=== PATIENT | female | born 1955 | race Caucasian/White ===

== ENCOUNTER 2018-03-10 12:19 | Inpatient (IN) ==
--- NOTE | 2018-03-10 15:15 | ED ---
HPI General Chief Complaint: Psychiatric Symptoms Stated Complaint: Psych eval Time Seen by Provider: 03/10/18 15:04 Source: patient Mode of arrival: ambulatory Limitations: no limitations History of Present Illness HPI Narrative: 63 YO F with PMH of mechanical valve replacement, A. fib, hypothyroidism, hypertension, anxiety presents to the ED seeking voluntary psychiatric evaluation. Patient states that she has been having racing thoughts for 3 weeks. She states that she has imagined "many ways" to kill herself. She states that she feels unsafe when she is alone. She denies any psychiatric history. She states that she has been unable to sleep and had very little appetite over the last 3 weeks as well. She cannot identify any acute triggers or stressors that may have caused this anxiety. She states that she was seen at [facility] in [place] on Monday and had a complete evaluation. She states that she was found to be hypothyroid and sent to her fur puller the next day. The fur puller sent her to the primary care provider who prescribed a small amount of alprazolam. Patient's been taking the medication but states that she still sleepless, anxious, suicidal and with poor appetite. She denies somatic complaints including headache, dizziness, chest pain, palpitations, shortness of breath, abdominal pain, vomiting, dysuria , weakness of the extremities. She endorses compliance with her daily medications. Related Data Home Medications Medication Instructions Recorded Confirmed Ca-D3-mag [id number]-dinorah-bor 03/10/18 [Calcium 600-D3 Plus] alprazolam 0.25 mg PO BID 03/10/18 03/10/18 alprazolam 0.5 mg PO HS 03/10/18 03/10/18 ascorbic acid (vitamin C) [Vitamin 500 mg PO DAILY 03/10/18 03/10/18 C] buspirone 3.75 mg PO BID 03/10/18 03/10/18 coQ10 (ubiquinol) 100 mg PO BID 03/10/18 03/10/18 cyanocobalamin (vitamin B-12) See Label Instructions .ROUTE 03/10/18 03/10/18 .COMPLEX furosemide 40 mg PO DAILY 03/10/18 03/10/18 levothyroxine [Synthroid] 75 mcg PO DAILY 03/10/18 03/10/18 losartan 50 mg PO DAILY 03/10/18 03/10/18 magnesium 400 mg PO DAILY 03/10/18 03/10/18 metoprolol tartrate 75 mg PO BID 03/10/18 03/10/18 oxycodone-acetaminophen 1 tab PO DAILY 03/10/18 03/10/18 potassium chloride 10 meq PO BID 03/10/18 03/10/18 ranitidine HCl 150 mg PO BID 03/10/18 03/10/18 rosuvastatin 10 mg PO DAILY 03/10/18 03/10/18 temazepam 15 mg PO HS PRN MDD 30 03/10/18 03/10/18 tiotropium bromide [Spiriva 2 puff INHALATION DAILY 03/10/18 03/10/18 Respimat] warfarin 3.5 mg PO DAILY 03/10/18 03/10/18 Allergies Allergy/AdvReac Type Severity Reaction Status Date / Time amitriptyline Allergy Unknown Hypotension Verified 03/10/18 17:20 ciprofloxacin [From Cipro] Allergy Unknown UNKNOWN Verified 03/10/18 17:20 sacubitril [From Entresto] Allergy Unknown Itching Verified 03/10/18 17:20 valsartan [From Entresto] Allergy Unknown Itching Verified 03/10/18 17:20 Review of Systems ROS: all other systems reviewed are negative PMFSH Medical History Medical History Anxiety (Acute) Atrial fibrillation (Acute) CHF (congestive heart failure) (Acute) Depression (Acute) Hyperthyroidism (Acute) Suicidal ideation (Acute) Surgical History Surgical History Hx of heart valve replacement with mechanical valve (Acute) Hx of heart valve replacement with porcine valve (Acute) Social History Social History Substance History: No History of Abuse Smoking Status: Former smoker How Often Do You Have a Drink Containing Alcohol: Never Recent Travel in [place] within the Last 8 Weeks: No Recent Out of Country Travel within the Last 8 Weeks: No Immunization History Tetanus Immunization: <5 Years Exam Narrative Exam Narrative: GENERAL: Well-nourished, well-developed white female no acute distress. SKIN: Focused skin assessment warm/dry. HEAD: Atraumatic. Normocephalic. EYES: Pupils equal and round. No scleral icterus. No injection or drainage. No exopthalmos. ENT: No nasal bleeding or discharge. Mucous membranes pink and moist. NECK: Trachea midline. No JVD. No masses or goiter. CARDIOVASCULAR: Regular rate and rhythm. No murmur appreciated. RESPIRATORY: No accessory muscle use. Clear to auscultation. Breath sounds equal bilaterally. GASTROINTESTINAL: Abdomen soft, non-tender, nondistended. Hepatic and splenic margins not palpable. MUSCULOSKELETAL: No obvious deformities. No clubbing. No cyanosis. No edema. NEUROLOGICAL: Awake and alert. No obvious cranial nerve deficits. Motor grossly within normal limits. Normal speech. Slight tremor which the patient states is baseline. PSYCHIATRIC: Very anxious, occasionally tearful. Course Initial Documented Vital Signs Temperature 97.7 F 03/10/18 12:22 Pulse Rate 89 03/10/18 12:22 Respiratory Rate 18 03/10/18 12:22 Blood Pressure 115/68 03/10/18 12:22 Pulse Oximetry 95 03/10/18 12:22 Last Documented Vital Signs Temperature 98.2 F 03/11/18 06:28 Pulse Rate 87 03/11/18 06:28 Respiratory Rate 16 03/11/18 06:28 Blood Pressure 108/58 L 03/11/18 06:28 Pulse Oximetry 93 L 03/11/18 06:28 Medical Decision Making MDM Narrative Medical decision making narrative: 63-year-old female presents the ED for voluntary psychiatric evaluation. Patient endorses racing thoughts, insomnia, low appetite, suicidal ideation times 3 weeks. She states that she had a complete medical workup at an outside hospital a few days ago and has since seen her fur puller and primary care provider. She has no somatic complaints. Vitals reviewed. On exam the patient's very anxious appearing, mildly tremulous, otherwise unremarkable. Patient was administered a milligram of Ativan IM. Lab work reveals low TSH. Free T3 and T4 within normal limits. Patient is medically clear for psychiatric evaluation. Medical Screen Exam Complete: Yes Emergency Medical Condition: Yes Differential Diagnosis Differential Diagnosis: Adjustment disorder versus anxiety versus bipolar versus depression versus dementia versus PTSD versus other Lab Data Result diagrams: 03/10/18 15:35 03/10/18 15:35 Lab Results 03/10/18 03/10/18 03/10/18 Range/Units 15:35 15:35 15:35 WBC 8.7 (4.0-11.0) th/mm3 RBC 4.27 (4.00-5.30) mil/mm3 Hgb 13.4 (11.6-15.3) gm/dL Hct 38.0 (35.0-46.0) % MCV 89.1 (80.0-100.0) fL MCH 31.4 (27.0-34.0) pg MCHC 35.2 (32.0-36.0) % RDW 13.8 (11.6-17.2) % Plt Count 123 L (150-450) th/mm3 MPV 8.9 (7.0-11.0) fL Neut % (Auto) 71.0 H (16.0-70.0) % Lymph % (Auto) 20.0 (9.0-44.0) % [place] % (Auto) 7.8 (0.0-8.0) % Eos % (Auto) 0.9 (0.0-4.0) % Baso % (Auto) 0.3 (0.0-2.0) % Neut # (Auto) 6.1 (1.8-7.7) th/mm3 Lymph # (Auto) 1.7 (1.0-4.8) th/mm3 [place] # (Auto) 0.7 (0.0-0.9) th/mm3 Eos # (Auto) 0.1 (0.0-0.4) th/mm3 Baso # (Auto) 0.0 (0.0-0.2) th/mm3 WBC Differential . Differential Comment Auto diff final PT 33.8 H (9.8-11.6) sec INR 3.4 Ratio Sodium 143 (136-145) meq/L Potassium 3.5 (3.5-5.1) meq/L Chloride 104 (98-107) meq/L Carbon Dioxide 31.5 (21.0-32.0) meq/L Anion Gap 8 (5-15) meq/L BUN 15 (7-18) mg/dL Creatinine 1.44 H (0.50-1.00) mg/dL Estimated GFR 37 L (>89) mL/min Random Glucose 99 (74-106) mg/dL Calcium 9.4 (8.5-10.1) mg/dL Magnesium 1.8 (1.5-2.5) mg/dL Total Bilirubin 1.3 H (0.2-1.0) mg/dL AST 20 (15-37) U/L ALT 24 (10-53) U/L Alkaline Phosphatase 65 (45-117) U/L Total Protein 7.0 (6.4-8.2) g/dL Albumin 4.0 (3.4-5.0) g/dL TSH 0.335 L (0.358-3.740) uIU/mL Free T4 1.31 (0.76-1.46) ng/dL Free T3 2.34 (2.18-3.98) pg/mL Urine Color (Yellw/Straw) Urine Clarity (Clear) Urine pH (5.0-8.5) Ur Specific [place] (1.002-1.035) Urine Protein (Neg-Trace) mg/dL Urine Glucose (UA) (Negative) mg/dL Urine Ketones (Negative) mg/dL Urine Occult Blood (Negative) Urine Nitrate (Negative) Urine Bilirubin (Negative) Urine Urobilinogen (Less than 2) mg/dL Ur Leukocyte Esterase (Negative) Urine RBC (0-3) /hpf Urine WBC (0-5) /hpf Ur Squamous Epith Cells (0-5) /hpf Hyaline Casts (0-3) /lpf Urine Mucus (Occasional) /lpf Micro UA Comment Ur Microscopic Review Urine Culture Comments Urine Opiates Screen (Neg) Ur Barbiturates Screen (Neg) Ur Amphetamines Screen (Neg) U Benzodiazepines Scrn (Neg) Urine Cocaine Screen (Neg) U Cannabinoids Screen (Neg) Serum Alcohol Less than 3 (0-5) mg/dL 03/10/18 03/10/18 Range/Units 18:53 18:53 WBC (4.0-11.0) th/mm3 RBC (4.00-5.30) mil/mm3 Hgb (11.6-15.3) gm/dL Hct (35.0-46.0) % MCV (80.0-100.0) fL MCH (27.0-34.0) pg MCHC (32.0-36.0) % RDW (11.6-17.2) % Plt Count (150-450) th/mm3 MPV (7.0-11.0) fL Neut % (Auto) (16.0-70.0) % Lymph % (Auto) (9.0-44.0) % [place] % (Auto) (0.0-8.0) % Eos % (Auto) (0.0-4.0) % Baso % (Auto) (0.0-2.0) % Neut # (Auto) (1.8-7.7) th/mm3 Lymph # (Auto) (1.0-4.8) th/mm3 [place] # (Auto) (0.0-0.9) th/mm3 Eos # (Auto) (0.0-0.4) th/mm3 Baso # (Auto) (0.0-0.2) th/mm3 WBC Differential Differential Comment PT (9.8-11.6) sec INR Ratio Sodium (136-145) meq/L Potassium (3.5-5.1) meq/L Chloride (98-107) meq/L Carbon Dioxide (21.0-32.0) meq/L Anion Gap (5-15) meq/L BUN (7-18) mg/dL Creatinine (0.50-1.00) mg/dL Estimated GFR (>89) mL/min Random Glucose (74-106) mg/dL Calcium (8.5-10.1) mg/dL Magnesium (1.5-2.5) mg/dL Total Bilirubin (0.2-1.0) mg/dL AST (15-37) U/L ALT (10-53) U/L Alkaline Phosphatase (45-117) U/L Total Protein (6.4-8.2) g/dL Albumin (3.4-5.0) g/dL TSH (0.358-3.740) uIU/mL Free T4 (0.76-1.46) ng/dL Free T3 (2.18-3.98) pg/mL Urine Color Straw (Yellw/Straw) Urine Clarity Clear (Clear) Urine pH 7.0 (5.0-8.5) Ur Specific [place] 1.005 (1.002-1.035) Urine Protein Negative (Neg-Trace) mg/dL Urine Glucose (UA) Negative (Negative) mg/dL Urine Ketones Negative (Negative) mg/dL Urine Occult Blood Negative (Negative) Urine Nitrate Negative (Negative) Urine Bilirubin Negative (Negative) Urine Urobilinogen Less than 2 (Less than 2) mg/dL Ur Leukocyte Esterase Negative (Negative) Urine RBC Less than 1 (0-3) /hpf Urine WBC 1 (0-5) /hpf Ur Squamous Epith Cells 1 (0-5) /hpf Hyaline Casts 1 (0-3) /lpf Urine Mucus Few H (Occasional) /lpf Micro UA Comment Culture not ind Ur Microscopic Review Not Reportable Urine Culture Comments Culture not ind Urine Opiates Screen Neg (Neg) Ur Barbiturates Screen Neg (Neg) Ur Amphetamines Screen Neg (Neg) U Benzodiazepines Scrn Pos H (Neg) Urine Cocaine Screen Neg (Neg) U Cannabinoids Screen Neg (Neg) Serum Alcohol (0-5) mg/dL Discharge Plan Discharge Disposition Patient Disposition: 30 Still Patient Physicians Team ED Provider: Casandra Ortiz ED Midlevel Provider: Lilian Odom Primary Care Provider: Kody Leo Attending Provider: Raj Villalba Other Providers: Robby Segovia Status ED Status: Left Department Discharge Information Discharge Date/Time: 03/10/18 22:09
[2018-03-10 15:47] LABS: Baso % (Auto) 0.3 % (0.0-2.0); Eos # (Auto) 0.1 th/mm3 (0.0-0.4); Eos % (Auto) 0.9 % (0.0-4.0); Hemoglobin 13.4 gm/dL (11.6-15.3); Lymph # (Auto) 1.7 th/mm3 (1.0-4.8); Mean Corpuscular HGB Conc 35.2 % (32.0-36.0); Mean Corpuscular Hemoglobin 31.4 pg (27.0-34.0); Mean Corpuscular Volume 89.1 fL (80.0-100.0); Mean Platelet Volume 8.9 fL (7.0-11.0); Mono # (Auto) 0.7 th/mm3 (0.0-0.9); Mono % (Auto) 7.8 % (0.0-8.0); Neut # (Auto) 6.1 th/mm3 (1.8-7.7); Platelet Count 123 th/mm3 (150-450); Red Blood Count 4.27 mil/mm3 (4.00-5.30); Red Cell Distribution Width 13.8 % (11.6-17.2); White Blood Count 8.7 th/mm3 (4.0-11.0)
[2018-03-10 16:09] LABS: Alanine Aminotransferase 24 U/L (10-53); Anion Gap 8 meq/L (5-15); Aspartate Aminotransferase 20 U/L (15-37); Blood Urea Nitrogen 15 mg/dL (7-18); Calcium 9.4 mg/dL (8.5-10.1); Carbon Dioxide 31.5 meq/L (21.0-32.0); Chloride 104 meq/L (98-107); Glomerular Filtration Rate 37 mL/min (>89); Glucose,Random 99 mg/dL (74-106); Magnesium 1.8 mg/dL (1.5-2.5); Potassium 3.5 meq/L (3.5-5.1); Sodium 143 meq/L (136-145)
[2018-03-10 16:10] LABS: INR 3.4 Ratio; Prothrombin Time 33.8 sec (9.8-11.6)
[2018-03-10 16:19] LABS: Alkaline Phosphatase 65 U/L (45-117); Thyroid Stimulating Hormone 0.335 uIU/mL (0.358-3.740)
[2018-03-10 18:56] LABS: Free T4 (Free Thyroxine) 1.31 ng/dL (0.76-1.46); Triiodothyronine (T3) Free 2.34 pg/mL (2.18-3.98)
[2018-03-10 19:20] LABS: Bilirubin,Urine Negative (Negative); Clarity,Urine Clear (Clear); Color,Urine Straw (Yellw/Straw); Glucose,Urine (UA) Negative (Negative); Hyaline Casts,Urine 1 /lpf (0-3); Leukocyte Esterase,Urine Negative (Negative); Mucus,Urine Few /lpf (Occasional); Nitrite,Urine Negative (Negative); Specific Gravity,Urine 1.005 (1.002-1.035); Squamous Epithelial Cell,Urine 1 /hpf (0-5)
[2018-03-10 20:08] LABS: Amphetamine Screen,Urine Neg (Neg); Barbiturate Screen,Urine Neg (Neg); Cannabinoid Screen,Urine Neg (Neg); Cocaine Screen,Urine Neg (Neg)
[2018-03-10 20:30] LABS: Opiate Screen,Urine Neg (Neg)
[2018-03-10] MEDS ORDERED: Aluminum/Magnesium/Simethacone Susp 30 ML UDC PO PRN (22:43)
[2018-03-10] MEDS: Metoprolol Tartrate 25 MG Tablet PO SCH (23:23)
[2018-03-11] MEDS: Levothyroxine 75 MCG Tablet PO SCH (05:38)
[2018-03-11] MEDS: Famotidine 20 MG Tablet PO SCH (08:41)
[2018-03-11] MEDS: Ascorbic Acid 500 MG Tablet PO SCH (08:43)
[2018-03-11] MEDS: Magnesium Oxide 400 MG Tablet PO SCH (08:43)
[2018-03-11] MEDS ORDERED: SPIRIVA RESPIMAT INH SCH (09:00)
[2018-03-11] MEDS: Furosemide 40 MG Tablet PO SCH (09:51)
[2018-03-11] MEDS: Metoprolol Tartrate 25 MG Tablet PO SCH ×2 (09:53→20:32)
[2018-03-11 11:06] LABS: Calcium 9.3 mg/dL (8.5-10.1); Carbon Dioxide 32.5 meq/L (21.0-32.0); Potassium 3.5 meq/L (3.5-5.1)
[2018-03-11 11:08] LABS: Chol/HDL Ratio 2.89 Ratio; HDL Cholesterol 42.2 mg/dL (40.0-60.0)
--- NOTE | 2018-03-11 11:29 | P.HPPSY ---
Provisional Diagnosis Admission Date: March 10, 2018 20:33 Competence Certification of Person's Competence To Provide Express and Informed Consent I have personally examined Vickie Petersen, a person being served at [facility] on, March 11, 2018 1123. Express and informed consent means consent voluntarily given in writing, by a competent person, after sufficient explanation and disclosure of the subject matter involved to enable the person to make a knowing and willful decision without any element of force, fraud, deceit, duress, or other form of constraint or coercion. This person is 18 years of age or older, is not now known to be incompetent to consent to treatment with a guardian advocate, and does not have a health care surrogate or proxy currently making medical treatment decisions. I have found this person to be one of the following: [X] Competent to provide express and informed consent, as defined above, for voluntary admission to this facility and is competent to provide express and informed consent for treatment. He/she has the consistent capacity to make well reasoned, willful, and knowing decisions concerning his or her medical or mental health treatment. The person fully and consistently understands the purpose of the admission for examination/placement and is fully capable of personally exercising all rights assured under [place] [] Incompetent to provide express and informed consent to voluntary admission, and this is incompetent to provide express and informed consent to treatment. The person must be transferred to involuntary status and a petition for a guardian advocate filed with the Circuit Court. [] Refusing to provide express and informed consent to voluntary admission but is competent to provide express and informed consent for treatment. The person must be discharged or transferred to involuntary status. Form shall be completed within 24 hours of a person's arrival at the receiving facility and filed in the clinical record of each person: 1. Admitted on a voluntary basis 2. Permitted to provide express and informed consent to his/her own treatment 3. Allowed to transfer from involuntary to voluntary status 4. Prior to permitting a person to consent to his or her own treatment after having been previously found incompetent to consent to treatment. History of Present Illness Capacity: Has capacity Chief Complaint: depression History of Present Illness: Patient is a 63-year-old female with a history of depressive disorder. He is she is here voluntarily for racing thoughts and persistent suicidal ideation. Patient says she has thoughts of not wanting to live anymore, does not care if she wakes up or not, feeling worthless. However, today she denies suicidal or homicidal ideation or plan. Says the thoughts are "in the back of my mind." She admits to anhedonia and depressive mood. Affect is quite anxious and patient is asking for Ativan. Patient notes "some tingling" with Atarax but nursing notes that it has been effective compared to her initial presentation. Patient is complaining of insomnia for the last 3 weeks Past psych: Patient was [place] [facility] here 22 years ago for cutting her wrist. She has had no other outpatient or inpatient treatment. No other psychotropic medications. Past medical: Multiple medical comorbidities including A. fib and hypertension see chart Past Famhx: Unsure Past Social: Patient denies drug or alcohol use. She is and lives with her , and has 2 kids - Inpatient Certification I certify that the inpatient services were ordered in accordance with Medicare regulations governing the order. This includes certification that hospital inpatient services are reasonable and necessary and in the case of services not specified as inpatient-only under 42 CFR 419.22(n), that they are appropriately provided as inpatient services in accordance to with the 2-midnight benchmark under 43 CFR 412.3(e) I certify that inpatient psychiatric hospital services are medically necessary. Evaluation and treatment and/or diagnostic testing are expected to improve the patient's condition. The patient needs on a daily basis, active treatment furnished directly by or requiring the supervision of inpatient psychiatric facility personnel. PMF - History History Provided By: Patient - Medical History Medical History: Medical History (Last Reviewed 03/11/18 @ 11:27 by Tobin Elizondo DO) Anxiety Atrial fibrillation CHF (congestive heart failure) Depression Hyperthyroidism Suicidal ideation - Surgical History Surgical History: Surgical History (Last Reviewed 03/11/18 @ 11:27 by Tobin Elizondo DO) Hx of heart valve replacement with mechanical valve Hx of heart valve replacement with porcine valve - Tobacco History Smoking Status: Former smoker - Alcohol History How Often Do You Have a Drink Containing Alcohol: Never - Substance Use History Substance History: No History of Abuse - Travel History Recent Travel in the [place] Within the Last 8 Weeks: No Recent Travel Out of the Country Within the Last 8 Weeks: No - Immunization History Tetanus Immunization: <5 Years Medications and Allergies Active Medications: Active Medications Acetaminophen (Tylenol) 650 mg PO Q4H PRN PRN Reason: PAIN 1-5 OR TEMP > 101 Al Hydrox/Mg Hydrox/Simethicone (Mag-Al Plus Susp Liq) 30 ml PO Q6H PRN PRN Reason: DYSPEPSIA Al Hydroxide/Mg Hydroxide (Milk Of Magnesia Liq) 30 ml PO DAILY PRN PRN Reason: CONSTIPATION Ascorbic Acid (Vitamin C) 500 mg PO DAILY [facility] Last Admin: 03/11/18 08:43 Dose: 500 mg Atorvastatin Calcium (Lipitor) 20 mg PO DAILY [facility] Last Admin: 03/11/18 08:43 Dose: 20 mg Buspirone HCl (Buspar) 3.75 mg PO BID [facility] Last Admin: 03/11/18 08:48 Dose: Not Given Famotidine (Pepcid) 20 mg PO DAILY [facility] Last Admin: 03/11/18 08:41 Dose: 20 mg Furosemide (Lasix) 40 mg PO DAILY [facility] Last Admin: 03/11/18 09:51 Dose: Not Given Levothyroxine Sodium (Synthroid) 75 mcg PO DAILY@0600 [facility] Last Admin: 03/11/18 05:38 Dose: 75 mcg Losartan Potassium (Cozaar) 50 mg PO DAILY [facility] Last Admin: 03/11/18 09:51 Dose: 50 mg Magnesium Oxide (Mag-Ox) 400 mg PO DAILY [facility] Last Admin: 03/11/18 08:43 Dose: 400 mg Metoprolol Tartrate (Lopressor) 75 mg PO BID [facility] Last Admin: 03/11/18 09:53 Dose: 75 mg Miscellaneous (Pill Splitter) 1 each OTHER UNSCH PRN PRN Reason: PILL SPIT Patient Medication Teaching (Coumadin Booklet) 1 each OTHER ONCE ONE Stop: 03/11/18 16:01 Pt Own Spiriva Respimat 1.25 Mcg/Inh 2 each INH DAILY [facility] Potassium Chloride (Klor-Con 10) 10 meq PO BID [facility] Last Admin: 03/11/18 08:42 Dose: 10 meq Temazepam (Restoril) 30 mg PO HS PRN PRN Reason: SLEEP Warfarin Sodium (Coumadin) 3.5 mg PO DAILY@1600 [facility] Allergies Allergy/AdvReac Type Severity Reaction Status Date / Time amitriptyline Allergy Unknown Hypotension Verified 03/10/18 17:20 ciprofloxacin [From Cipro] Allergy Unknown UNKNOWN Verified 03/10/18 17:20 sacubitril [From Entresto] Allergy Unknown Itching Verified 03/10/18 17:20 valsartan [From Entresto] Allergy Unknown Itching Verified 03/10/18 17:20 Home Medications Medication Instructions Recorded Confirmed Type Ca-D3-mag di-asff-acr-dinorah-bor 03/10/18 History [Calcium 600-D3 Plus] alprazolam 0.25 mg PO BID 03/10/18 03/10/18 History alprazolam 0.5 mg PO HS 03/10/18 03/10/18 History ascorbic acid (vitamin C) [Vitamin 500 mg PO DAILY 03/10/18 03/10/18 History C] buspirone 3.75 mg PO BID 03/10/18 03/10/18 History coQ10 (ubiquinol) 100 mg PO BID 03/10/18 03/10/18 History cyanocobalamin (vitamin B-12) See Label Instructions .ROUTE 03/10/18 03/10/18 History .COMPLEX furosemide 40 mg PO DAILY 03/10/18 03/10/18 History levothyroxine [Synthroid] 75 mcg PO DAILY 03/10/18 03/10/18 History losartan 50 mg PO DAILY 03/10/18 03/10/18 History magnesium 400 mg PO DAILY 03/10/18 03/10/18 History metoprolol tartrate 75 mg PO BID 03/10/18 03/10/18 History oxycodone-acetaminophen 1 tab PO DAILY 03/10/18 03/10/18 History potassium chloride 10 meq PO BID 03/10/18 03/10/18 History ranitidine HCl 150 mg PO BID 03/10/18 03/10/18 History rosuvastatin 10 mg PO DAILY 03/10/18 03/10/18 History temazepam 15 mg PO HS PRN MDD 30 03/10/18 03/10/18 History tiotropium bromide [Spiriva 2 puff INHALATION DAILY 03/10/18 03/10/18 History Respimat] warfarin 3.5 mg PO DAILY 03/10/18 03/10/18 History Results - Labs CBC & Chem 7: 03/10/18 15:35 03/11/18 09:32 Labs: Laboratory Results - last 24 hr 03/10/18 03/10/18 03/10/18 15:35 15:35 15:35 WBC 8.7 RBC 4.27 Hgb 13.4 Hct 38.0 MCV 89.1 MCH 31.4 MCHC 35.2 RDW 13.8 Plt Count 123 L MPV 8.9 Neut % (Auto) 71.0 H Lymph % (Auto) 20.0 [place] % (Auto) 7.8 Eos % (Auto) 0.9 Baso % (Auto) 0.3 Neut # (Auto) 6.1 Lymph # (Auto) 1.7 [place] # (Auto) 0.7 Eos # (Auto) 0.1 Baso # (Auto) 0.0 WBC Differential . Differential Comment Auto diff final PT 33.8 H INR 3.4 Sodium 143 Potassium 3.5 Chloride 104 Carbon Dioxide 31.5 Anion Gap 8 BUN 15 Creatinine 1.44 H Estimated GFR 37 L Random Glucose 99 Calcium 9.4 Magnesium 1.8 Total Bilirubin 1.3 H AST 20 ALT 24 Alkaline Phosphatase 65 Total Protein 7.0 Albumin 4.0 Triglycerides Cholesterol LDL Cholesterol, Calc HDL Cholesterol Cholesterol/HDL Ratio TSH 0.335 L Free T4 1.31 Free T3 2.34 Urine Color Urine Clarity Urine pH Ur Specific [place] Urine Protein Urine Glucose (UA) Urine Ketones Urine Occult Blood Urine Nitrate Urine Bilirubin Urine Urobilinogen Ur Leukocyte Esterase Urine RBC Urine WBC Ur Squamous Epith Cells Hyaline Casts Urine Mucus Micro UA Comment Ur Microscopic Review Urine Culture Comments Urine Opiates Screen Ur Barbiturates Screen Ur Amphetamines Screen U Benzodiazepines Scrn Urine Cocaine Screen U Cannabinoids Screen Serum Alcohol Less than 3 03/10/18 03/10/18 03/11/18 18:53 18:53 09:32 WBC RBC Hgb Hct MCV MCH MCHC RDW Plt Count MPV Neut % (Auto) Lymph % (Auto) [place] % (Auto) Eos % (Auto) Baso % (Auto) Neut # (Auto) Lymph # (Auto) [place] # (Auto) Eos # (Auto) Baso # (Auto) WBC Differential Differential Comment PT INR Sodium 142 Potassium 3.5 Chloride 102 Carbon Dioxide 32.5 H Anion Gap 8 BUN 16 Creatinine 1.53 H Estimated GFR 35 L Random Glucose 99 Calcium 9.3 Magnesium Total Bilirubin AST ALT Alkaline Phosphatase Total Protein Albumin Triglycerides 157 H Cholesterol 122 LDL Cholesterol, Calc 48 HDL Cholesterol 42.2 Cholesterol/HDL Ratio 2.89 TSH Free T4 Free T3 Urine Color Straw Urine Clarity Clear Urine pH 7.0 Ur Specific [place] 1.005 Urine Protein Negative Urine Glucose (UA) Negative Urine Ketones Negative Urine Occult Blood Negative Urine Nitrate Negative Urine Bilirubin Negative Urine Urobilinogen Less than 2 Ur Leukocyte Esterase Negative Urine RBC Less than 1 Urine WBC 1 Ur Squamous Epith Cells 1 Hyaline Casts 1 Urine Mucus Few H Micro UA Comment Culture not ind Ur Microscopic Review Not Reportable Urine Culture Comments Culture not ind Urine Opiates Screen Neg Ur Barbiturates Screen Neg Ur Amphetamines Screen Neg U Benzodiazepines Scrn Pos H Urine Cocaine Screen Neg U Cannabinoids Screen Neg Serum Alcohol Exam Vital signs: Vital Signs 03/10/18 13:31 03/10/18 15:03 03/10/18 21:28 Temperature 97.9 F 98.3 F 98.0 F Pulse Rate 87 88 99 H Respiratory Rate 18 18 16 Blood Pressure 127/65 125/73 119/65 Pulse Oximetry 99 98 98 03/10/18 22:00 03/11/18 06:28 Temperature 98.4 F 98.2 F Pulse Rate 89 87 Respiratory Rate 18 16 Blood Pressure 124/63 108/58 L Pulse Oximetry 93 L 93 L Intake & Output 03/10/18 03/11/18 03/11/18 19:59 06:59 18:59 Intake Total Balance Weight Intake: Oral Mental Status Examination Appearance: Disheveled Consciousness: Alert Orientation: x4 Motor Activity: Normal gait Speech: Hesitant, Slow Language: Adequate Fund of Knowledge: Adequate Attention and Concentration: Adequate Memory: Unremarkable Affect: Sad, Anxious Thought Process & Associations: Other (Anxious) Thought Content: Appropriate Hallucination Type: None Delusion Type: None Suicidal Ideation: No (Passive, fleeting) Suicidal Plan: No Suicidal Intention: No Homicidal Ideation: No Homicidal Plan: No Homicidal Intention: No Insight: Poor Judgment: Poor Assessment and Plan - Assessment (1) Major depressive disorder, recurrent severe without psychotic features Code(s): F33.2 - Major depressive disorder, recurrent severe without psychotic features Status: Acute - Plan Plan: Patient may sign voluntary. We will start Remeron 15 mg p.o. nightly. Patient is seeking Ativan but we will continue with Atarax at this time. We will consult the medical doctor given that she feels that her Lasix is supposed to be every other day Justification for Continued Inpatient Stay: Patient would decompensate in a less restrictive setting
[2018-03-11 13:00] LABS: Hemoglobin A1c 5.5 % (4.3-6.0)
[2018-03-11] MEDS ORDERED: Mirtazapine 15 MG Tablet PO SCH (18:45)
--- NOTE | 2018-03-11 18:50 | P.CONIM ---
History of Present Illness Primary Care Provider: Kody Leo MD History of Present Illness: Pt is 63 yo with depression and anxiety admitted to psych unit for suicidal ideas. She was recently admitted to [facility] for what pt calls hyperthyroidism and her synthroid reduced. 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 Her inr yesterday was 3.4. Denies any cp or palpitation. She is concerned that her home meds have not been resumed. PMH: MV replacement. mechanical x 2 first one at age 21 for endocarditis afib htn remote chf related to her valvulopathy depression/anxiety c sections hypothyroidism copd. sh denies tob/etoh fh; [place] [facility] Medical History Medical History Anxiety (Acute) Atrial fibrillation (Acute) CHF (congestive heart failure) (Acute) Depression (Acute) Hyperthyroidism (Acute) Suicidal ideation (Acute) Surgical History Surgical History Hx of heart valve replacement with mechanical valve (Acute) Hx of heart valve replacement with porcine valve (Acute) Social History Social History Substance History: No History of Abuse Smoking Status: Former smoker How Often Do You Have a Drink Containing Alcohol: Never Recent Travel in [place] within the Last 8 Weeks: No Recent Out of Country Travel within the Last 8 Weeks: No Immunization History Tetanus Immunization: <5 Years Medications and Allergies Allergies Allergy/AdvReac Type Severity Reaction Status Date / Time amitriptyline Allergy Unknown Hypotension Verified 03/10/18 17:20 ciprofloxacin [From Cipro] Allergy Unknown UNKNOWN Verified 03/10/18 17:20 sacubitril [From Entresto] Allergy Unknown Itching Verified 03/10/18 17:20 valsartan [From Entresto] Allergy Unknown Itching Verified 03/10/18 17:20 Home Medications Medication Instructions Recorded Confirmed Type Ca-D3-mag [id number] 03/10/18 History [Calcium 600-D3 Plus] alprazolam 0.25 mg PO BID 03/10/18 03/10/18 History alprazolam 0.5 mg PO HS 03/10/18 03/10/18 History ascorbic acid (vitamin C) [Vitamin 500 mg PO DAILY 03/10/18 03/10/18 History C] buspirone 3.75 mg PO BID 03/10/18 03/10/18 History coQ10 (ubiquinol) 100 mg PO BID 03/10/18 03/10/18 History cyanocobalamin (vitamin B-12) See Label Instructions .ROUTE 03/10/18 03/10/18 History .COMPLEX furosemide 40 mg PO DAILY 03/10/18 03/10/18 History levothyroxine [Synthroid] 75 mcg PO DAILY 03/10/18 03/10/18 History losartan 50 mg PO DAILY 03/10/18 03/10/18 History magnesium 400 mg PO DAILY 03/10/18 03/10/18 History metoprolol tartrate 75 mg PO BID 03/10/18 03/10/18 History oxycodone-acetaminophen 1 tab PO DAILY 03/10/18 03/10/18 History potassium chloride 10 meq PO BID 03/10/18 03/10/18 History ranitidine HCl 150 mg PO BID 03/10/18 03/10/18 History rosuvastatin 10 mg PO DAILY 03/10/18 03/10/18 History temazepam 15 mg PO HS PRN MDD 30 03/10/18 03/10/18 History tiotropium bromide [Spiriva 2 puff INHALATION DAILY 03/10/18 03/10/18 History Respimat] warfarin 3.5 mg PO DAILY 03/10/18 03/10/18 History Active Medications: Active Medications Acetaminophen (Tylenol) 650 mg PO Q4H PRN PRN Reason: PAIN 1-5 OR TEMP > 101 Al Hydrox/Mg Hydrox/Simethicone (Mag-Al Plus Susp Liq) 30 ml PO Q6H PRN PRN Reason: DYSPEPSIA Al Hydroxide/Mg Hydroxide (Milk Of Magnesia Liq) 30 ml PO DAILY PRN PRN Reason: CONSTIPATION Ascorbic Acid (Vitamin C) 500 mg PO DAILY [facility] Last Admin: 03/11/18 08:43 Dose: 500 mg Atorvastatin Calcium (Lipitor) 20 mg PO DAILY [facility] Last Admin: 03/11/18 08:43 Dose: 20 mg Buspirone HCl (Buspar) 3.75 mg PO BID [facility] Last Admin: 03/11/18 08:48 Dose: Not Given Famotidine (Pepcid) 20 mg PO DAILY [facility] Last Admin: 03/11/18 08:41 Dose: 20 mg Furosemide (Lasix) 40 mg PO DAILY [facility] Last Admin: 03/11/18 09:51 Dose: Not Given Hydroxyzine HCl (Atarax) 50 mg PO Q6H PRN PRN Reason: ANXIETY Last Admin: 03/11/18 17:03 Dose: 50 mg Levothyroxine Sodium (Synthroid) 75 mcg PO DAILY@0600 [facility] Last Admin: 03/11/18 05:38 Dose: 75 mcg Losartan Potassium (Cozaar) 50 mg PO DAILY [facility] Last Admin: 03/11/18 09:51 Dose: 50 mg Magnesium Oxide (Mag-Ox) 400 mg PO DAILY [facility] Last Admin: 03/11/18 08:43 Dose: 400 mg Metoprolol Tartrate (Lopressor) 75 mg PO BID [facility] Last Admin: 03/11/18 09:53 Dose: 75 mg Mirtazapine (Remeron) 15 mg PO HS [facility] Miscellaneous (Pill Splitter) 1 each OTHER UNSCH PRN PRN Reason: PILL SPIT Pt Own Spiriva Respimat 1.25 Mcg/Inh 2 each INH DAILY [facility] Potassium Chloride (Klor-Con 10) 10 meq PO BID [facility] Last Admin: 03/11/18 08:42 Dose: 10 meq Temazepam (Restoril) 30 mg PO HS PRN PRN Reason: SLEEP Warfarin Sodium (Coumadin) 3.5 mg PO DAILY@1600 [facility] Physical Exam Vital signs: Last Vital Signs Temp 98.3 F 03/11/18 17:23 Pulse 81 03/11/18 17:23 Resp 17 03/11/18 17:23 BP 102/56 L 03/11/18 17:23 Pulse Ox 96 03/11/18 17:23 Narrative: heart reg lung cta abd s/nt xt no edema Results Labs CBC & Chem 7: 03/10/18 15:35 03/11/18 09:32 Assessment and Plan Assessment (1) Major depressive disorder, recurrent severe without psychotic features: Code(s): F33.2 - Major depressive disorder, recurrent severe without psychotic features Status: Acute (2) Afib: Code(s): I48.91 - Unspecified atrial fibrillation Status: Acute (3) Mitral valve replaced: Code(s): Z95.2 - Presence of prosthetic heart valve Status: Acute (4) Hypothyroidism: Code(s): E03.9 - Hypothyroidism, unspecified Status: Acute Plan depression/anxiety/suicidal Pt admitted to psych unit for depression and suicidal thoughts per psychiatry afib. hx mechanical mitral valve secondary to endocartitis I reviewed the pt's med list with her resume her coumadin 3mg daily with daily inr for now. she reports taking lasix 40mg and kcl 10meq every other day monitor bmp COPD resume her spiriva Hypothyroidism cont her synthroid
[2018-03-11] MEDS: Mirtazapine 15 MG Tablet PO SCH (20:32)
[2018-03-12 07:00] LABS: INR 1.9 Ratio; Prothrombin Time 19.3 sec (9.8-11.6)
[2018-03-12 07:18] LABS: Calcium 8.6 mg/dL (8.5-10.1); Carbon Dioxide 30.4 meq/L (21.0-32.0); Potassium 3.5 meq/L (3.5-5.1)
[2018-03-12] MEDS: Famotidine 20 MG Tablet PO SCH (08:20)
[2018-03-12] MEDS: Ascorbic Acid 500 MG Tablet PO SCH (08:20)
[2018-03-12] MEDS: Magnesium Oxide 400 MG Tablet PO SCH (08:20)
[2018-03-12] MEDS: Levothyroxine 75 MCG Tablet PO SCH (08:22)
[2018-03-12] MEDS: Tiotropium Bromide 18 MCG/ACT Inhaler INH SCH (08:25)
[2018-03-12] MEDS: Metoprolol Tartrate 25 MG Tablet PO SCH ×2 (08:27→21:28)
[2018-03-12] MEDS: Furosemide 40 MG Tablet PO SCH (08:28)
[2018-03-12] MEDS: Acetaminophen 325 MG Tablet PO PRN (13:12)
[2018-03-12] MEDS: Enoxaparin Inj 80 MG/0.8 ML Syringe SQ SCH (14:55)
--- NOTE | 2018-03-12 15:45 | P.TTN ---
- Patient Problems Problems: 1. Discharge planning 2. Medication compliance 3. Knowledge deficit 4. Lack of coping skills - Progress Toward Goals Provider Present: Dr. Renea Marc Provider Input: 03/12: Pt is new, will meet with her and discuss treatment plan today Nurse(s) Present: Ada Nurse Input: 03/12: Pt is depressed; denies SI; denies AVH; cooperative; no behavioral issues Psychiatric Counselors Present: Bertin Yanez Jr., [facility], Shweta Browne, [facility] Group Spec/RT/OT/SOLIZ Present: MARTÍNEZ Echevarria, Fernando Alvarado, OT Group Spec/RT/OT/SOLIZ Input: 03/12: Pt has began to attend select groups with encouragement, she is seclusive Occupational Therapist Input: 03/12: Pt refused to speak to the OT for interview ; MDD, hx of multiple medical problems Clinical Coordinator: Rose Clark, [facility] - Discharge Plan Other 03/12: Pt is new today; will meet with her and discuss discharge planning - Documentation Teaching Recipient: Patient
[2018-03-12] MEDS ORDERED: Aluminum/Magnesium/Simethacone Susp 30 ML UDC PO PRN (17:08)
--- NOTE | 2018-03-12 17:16 | P.PNPSY ---
Subjective Chief Complaint: depression Remarks: Patient initially seen and admitted by Dr. Tobin Elizondo's H&P reviewed and agreed with. I have finished the admitting psychiatric template orders. Patient is seen with nurse Brigitte. She is alert oriented calm and cooperative depressed he has been getting worse over the past month stating she has had very poor sleep with initial and mid insomnia. He only slept somewhat better last night with the addition of the scheduled medications. She is vague about continued suicidality. Review of Systems All other systems reviewed negative except as stated in HPI Mental Status Examination Appearance: Appropriate Consciousness: Alert Orientation: x4 Motor Activity: Normal gait Speech: Hesitant (Improved), Slow (Improved) Language: Adequate Fund of Knowledge: Adequate Attention and Concentration: Adequate Memory: Unremarkable Mood: Sad, Anxious Affect: Other (Slight increased range and intensity) Thought Process & Associations: Intact Thought Content: Appropriate Hallucination Type: None Delusion Type: None Suicidal Ideation: No (Passive, fleeting) Suicidal Plan: No Suicidal Intention: No Homicidal Ideation: No Homicidal Plan: No Homicidal Intention: No Insight: Poor Judgment: Poor Assessment and Plan - Assessment (1) Major depressive disorder, recurrent severe without psychotic features Code(s): F33.2 - Major depressive disorder, recurrent severe without psychotic features Status: Acute - Plan Plan: Patient remains depressed and anxious and insomniac compliant medications Justification for Continued Inpatient Stay: At this time patient would decompensate a place to a lower level of care Discharge Planning: Probable return home
[2018-03-12] MEDS: Mirtazapine 15 MG Tablet PO SCH (21:28)
[2018-03-12] MEDS: Temazepam 15 MG Capsule PO PRN (22:23)
[2018-03-13] MEDS: Enoxaparin Inj 80 MG/0.8 ML Syringe SQ SCH ×2 (05:23→15:03)
[2018-03-13] MEDS: Levothyroxine 75 MCG Tablet PO SCH (06:22)
[2018-03-13] MEDS: Ascorbic Acid 500 MG Tablet PO SCH (09:24)
[2018-03-13] MEDS: Famotidine 20 MG Tablet PO SCH (09:24)
[2018-03-13] MEDS: Magnesium Oxide 400 MG Tablet PO SCH (09:24)
[2018-03-13] MEDS: Metoprolol Tartrate 25 MG Tablet PO SCH ×2 (09:24→21:24)
[2018-03-13] MEDS: Furosemide 40 MG Tablet PO SCH (09:25)
[2018-03-13] MEDS: Tiotropium Bromide 18 MCG/ACT Inhaler INH SCH (10:24)
[2018-03-13 10:25] LABS: Prothrombin Time 20.7 sec (9.8-11.6)
[2018-03-13 10:42] LABS: Calcium 9.2 mg/dL (8.5-10.1); Carbon Dioxide 29.9 meq/L (21.0-32.0); Potassium 3.7 meq/L (3.5-5.1)
--- NOTE | 2018-03-13 14:13 | P.PNPSY ---
Subjective Chief Complaint: depression Remarks: Patient seen in her room with nurse Jaimie, chart reviewed, patient compliant medication. Patient continues quite anxious focusing on her anxiety focusing on her poor sleep function and agreed for medication with some subtle references towards benzodiazepines she states she felt the BuSpar she was given outpatient was not helping her. We did discuss alternatives. We will offer the patient Seroquel 25 mg 9 AM and 4 PM and 50 mg at at bedtime. Patient continues to denies suicidality Review of Systems All other systems reviewed negative except as stated in HPI Mental Status Examination Appearance: Appropriate Consciousness: Alert Orientation: x4 Motor Activity: Normal gait Speech: Hesitant (Improved), Slow (Improved) Language: Adequate Fund of Knowledge: Adequate Attention and Concentration: Adequate Memory: Unremarkable Mood: Sad, Anxious Affect: Other (Slight increased range and intensity) Thought Process & Associations: Intact Thought Content: Appropriate Hallucination Type: None Delusion Type: None Suicidal Ideation: No (Passive, fleeting) Suicidal Plan: No Suicidal Intention: No Homicidal Ideation: No Homicidal Plan: No Homicidal Intention: No Insight: Poor Judgment: Poor Assessment and Plan - Assessment (1) Major depressive disorder, recurrent severe without psychotic features Code(s): F33.2 - Major depressive disorder, recurrent severe without psychotic features Status: Acute - Plan Plan: Patient continues somewhat depressed though her primary focuses on her anxiety and her insomnia and her desire for his rapid a fix on her anxiety and insomnia is possible. C medication adjustments above Justification for Continued Inpatient Stay: At this time patient would decompensate a place to a lower level of care Discharge Planning: Return home with family
[2018-03-13] MEDS: QUEtiapine 25 MG Tablet PO SCH ×2 (15:04→21:24)
[2018-03-13] MEDS: Mirtazapine 15 MG Tablet PO SCH (21:24)
--- NOTE | 2018-03-14 01:05 | XR ---
EXAM DATE: 03/14/2018 12:57 AM EST AGE/SEX: 63 years / Female INDICATIONS: Left foot pain. CLINICAL DATA: This is the patient's initial encounter. Patient reports that signs and symptoms have been present for 1 day and indicates a pain score of Nonresponsive. MEDICAL/SURGICAL HISTORY: None. None. COMPARISON: No prior exams available for comparison. FINDINGS: Bony structures are intact and in normal alignment. Osseous density is normal. Soft tissues are unre markable. No radiopaque foreign bodies seen. CONCLUSION: Negative examination Electronically signed by: Reyes Ruffin MD 03/14/2018 1:03 AM EST
[2018-03-14] MEDS: Enoxaparin Inj 80 MG/0.8 ML Syringe SQ SCH ×2 (02:24→21:02)
[2018-03-14] MEDS: Levothyroxine 75 MCG Tablet PO SCH (05:06)
[2018-03-14 08:28] LABS: Prothrombin Time 20.3 sec (9.8-11.6)
[2018-03-14] MEDS: Metoprolol Tartrate 25 MG Tablet PO SCH ×2 (08:30→21:01)
[2018-03-14] MEDS: Magnesium Oxide 400 MG Tablet PO SCH (08:30)
[2018-03-14] MEDS: Acetaminophen 325 MG Tablet PO PRN (08:31)
[2018-03-14] MEDS: Ascorbic Acid 500 MG Tablet PO SCH (08:31)
[2018-03-14] MEDS: Famotidine 20 MG Tablet PO SCH (08:31)
[2018-03-14] MEDS: Tiotropium Bromide 18 MCG/ACT Inhaler INH SCH (08:33)
[2018-03-14] MEDS: QUEtiapine 25 MG Tablet PO SCH ×3 (08:35→21:01)
--- NOTE | 2018-03-14 12:25 | P.PNPSY ---
Subjective Chief Complaint: depression Remarks: Patient seen in her room with nurse Jaimie, chart reviewed, patient compliant medication. Patient continues to focus on her sleep issues. And wanting her "sleep meds" we discussed the need for appropriate timing for these medications to allow further effect to show itself. We will continue dosages no change at this time. The patient was complaining about the timing for her Lovenox. We will change that to 9 AM and 9 PM. Patient does feel that if her sleep improves much of the rest of her problems will resolve. Continue to work with the sleep issues in an organized structured manner it appears patient had some type of a syncopal type episode last night she complains of twisted ankle there is some swelling over her left foot though she has good range of motion and is somewhat tender though x-rays taken were negative. She has no other sequelae. Her vital signs appears stable at this time Review of Systems All other systems reviewed negative except as stated in HPI Mental Status Examination Appearance: Appropriate Consciousness: Alert Orientation: x4 Motor Activity: Normal gait Speech: Unremarkable, Hesitant Language: Adequate Fund of Knowledge: Adequate Attention and Concentration: Adequate Memory: Unremarkable Mood: Sad, Anxious (Slightly improved) Affect: Other (Slight increased range and intensity) Thought Process & Associations: Intact Thought Content: Appropriate Hallucination Type: None Delusion Type: None Suicidal Ideation: No (Passive, fleeting) Suicidal Plan: No Suicidal Intention: No Homicidal Ideation: No Homicidal Plan: No Homicidal Intention: No Insight: Poor Judgment: Poor Assessment and Plan - Assessment (1) Major depressive disorder, recurrent severe without psychotic features Code(s): F33.2 - Major depressive disorder, recurrent severe without psychotic features Status: Acute - Plan Plan: Patient remains depressed and anxious focusing on her insomnia. She medication adjustments above. Continue to observe Justification for Continued Inpatient Stay: At this time patient may decompensate a place to the lower level of care Discharge Planning: To be determined
[2018-03-14] MEDS: Temazepam 15 MG Capsule PO PRN (21:01)
[2018-03-14] MEDS: Mirtazapine 15 MG Tablet PO SCH (21:02)
[2018-03-15] MEDS: Levothyroxine 75 MCG Tablet PO SCH (06:14)
[2018-03-15 07:15] LABS: INR 2.4 Ratio; Prothrombin Time 24.2 sec (9.8-11.6)
[2018-03-15] MEDS: Metoprolol Tartrate 25 MG Tablet PO SCH ×2 (08:41→20:45)
[2018-03-15] MEDS: Famotidine 20 MG Tablet PO SCH (08:41)
[2018-03-15] MEDS: Furosemide 40 MG Tablet PO SCH (08:41)
[2018-03-15] MEDS: Ascorbic Acid 500 MG Tablet PO SCH (08:42)
[2018-03-15] MEDS: Magnesium Oxide 400 MG Tablet PO SCH (08:42)
[2018-03-15] MEDS: Enoxaparin Inj 80 MG/0.8 ML Syringe SQ SCH ×2 (08:44→20:50)
[2018-03-15] MEDS: Tiotropium Bromide 18 MCG/ACT Inhaler INH SCH (08:45)
[2018-03-15] MEDS: QUEtiapine 25 MG Tablet PO SCH ×2 (08:45→15:27)
--- NOTE | 2018-03-15 12:18 | P.PNPSY ---
Subjective Chief Complaint: depression Remarks: Patient seen in her room with nurse Jaimie, chart reviewed, patient states she slept better last night from about 10 PM to 4 AM. She still focuses on her anxiety. She did take with the temazepam and the Seroquel last night. However I question the efficacy of the temazepam for long-term treatment with this lady. At this time I will discontinue the temazepam and increase the at bedtime Seroquel to 75 mg. Continue the other meds no change Review of Systems All other systems reviewed negative except as stated in HPI Mental Status Examination Appearance: Appropriate Consciousness: Alert Orientation: x4 Motor Activity: Normal gait Speech: Unremarkable, Hesitant (Improved) Language: Adequate Fund of Knowledge: Adequate Attention and Concentration: Adequate Memory: Unremarkable Mood: Sad, Anxious (Slightly improved) Affect: Other (Slight increased range and intensity) Thought Process & Associations: Intact Thought Content: Appropriate Hallucination Type: None Delusion Type: None Suicidal Ideation: No (Passive, fleeting) Suicidal Plan: No Suicidal Intention: No Homicidal Ideation: No Homicidal Plan: No Homicidal Intention: No Insight: Fair Judgment: Poor Assessment and Plan - Assessment (1) Major depressive disorder, recurrent severe without psychotic features Code(s): F33.2 - Major depressive disorder, recurrent severe without psychotic features Status: Acute - Plan Plan: Patient continues somewhat anxious the sleep is improved. Please see medication adjustments above Justification for Continued Inpatient Stay: At this time patient may decompensate a place to a lower level of care Discharge Planning: To be determined probable return home with
[2018-03-15] MEDS: Mirtazapine 15 MG Tablet PO SCH (20:45)
[2018-03-15] MEDS ORDERED: QUEtiapine 25 MG Tablet PO SCH (21:00)
[2018-03-16] MEDS: SYNTHROID 75 MCG PO SCH (06:31)
[2018-03-16] MEDS: Ascorbic Acid 500 MG Tablet PO SCH (08:58)
[2018-03-16] MEDS: Famotidine 20 MG Tablet PO SCH (08:58)
[2018-03-16] MEDS: Metoprolol Tartrate 25 MG Tablet PO SCH ×2 (08:58→21:35)
[2018-03-16] MEDS: Magnesium Oxide 400 MG Tablet PO SCH (08:59)
[2018-03-16] MEDS: QUEtiapine 25 MG Tablet PO SCH ×2 (09:02→16:01)
[2018-03-16] MEDS: Tiotropium Bromide 18 MCG/ACT Inhaler INH SCH (09:02)
[2018-03-16 09:03] LABS: INR 2.6 Ratio; Prothrombin Time 25.8 sec (9.8-11.6)
--- NOTE | 2018-03-16 12:39 | P.PNPSY ---
Subjective Chief Complaint: depression Remarks: Patient seen and amaya with KRISH Herron, chart reviewed, patient compliant medication. Patient states she felt she did not sleep well last night though there was a marked decrease in the anxiety related to this. She states she is surprised that she is up walking around the dayroom and participating which is an improvement since earlier in the admission. Still focuses on the insomnia. She does denies suicidality or voices. States she has talked to the and there appears to be some increased stress between the 2 of them at this time we will increase at bedtime Seroquel to 100 mg. And increase at bedtime Remeron to 30 mg Review of Systems All other systems reviewed negative except as stated in HPI Mental Status Examination Appearance: Appropriate Consciousness: Alert Orientation: x4 Motor Activity: Normal gait Speech: Unremarkable Language: Adequate Fund of Knowledge: Adequate Attention and Concentration: Adequate Memory: Unremarkable Mood: Sad, Anxious (Slightly improved) Affect: Other (Slight increased range and intensity) Thought Process & Associations: Intact Thought Content: Appropriate Hallucination Type: None Delusion Type: None Suicidal Ideation: No (Passive, fleeting) Suicidal Plan: No Suicidal Intention: No Homicidal Ideation: No Homicidal Plan: No Homicidal Intention: No Insight: Fair Judgment: Adequate (Fair) Assessment and Plan - Assessment (1) Major depressive disorder, recurrent severe without psychotic features Code(s): F33.2 - Major depressive disorder, recurrent severe without psychotic features Status: Acute - Plan Plan: Patient remains depressed with much focus on her sleep issues and the anxiety. However objectively she appears somewhat improved stating that there was some decrease in her anxiety through the night, and there is some surprise today at her being up and about on the day room. She medication adjustments above Justification for Continued Inpatient Stay: At this time patient would decompensate a place to a lower level of care Discharge Planning: Return home with
[2018-03-16] MEDS: QUEtiapine 100 MG Tablet PO SCH (21:35)
[2018-03-16] MEDS: Mirtazapine 15 MG Tablet PO SCH (21:35)
[2018-03-16] MEDS: Acetaminophen 325 MG Tablet PO PRN (21:39)
[2018-03-17] MEDS: SYNTHROID 75 MCG PO SCH (05:21)
[2018-03-17] MEDS: Furosemide 40 MG Tablet PO SCH (08:23)
[2018-03-17] MEDS: Magnesium Oxide 400 MG Tablet PO SCH (08:23)
[2018-03-17] MEDS: Ascorbic Acid 500 MG Tablet PO SCH (08:23)
[2018-03-17] MEDS: Famotidine 20 MG Tablet PO SCH (08:23)
[2018-03-17] MEDS: Metoprolol Tartrate 25 MG Tablet PO SCH ×2 (08:24→20:37)
[2018-03-17] MEDS: QUEtiapine 25 MG Tablet PO SCH ×2 (10:09→16:05)
[2018-03-17] MEDS: Tiotropium Bromide 18 MCG/ACT Inhaler INH SCH (10:12)
[2018-03-17] MEDS: Benzocaine/Menthol 15 MG/3.6 MG SF Lozenge BUCCAL PRN (10:35)
--- NOTE | 2018-03-17 11:40 | P.PNPSY ---
Subjective Chief Complaint: depression Remarks: Patient was seen and case discussed with nursing. Patient continues to complain of anxiety though it is improved. She notices sleep has improved. Main stressors are conflict with her . Eating and sleeping well. Mental Status Examination Appearance: Appropriate Consciousness: Alert Orientation: x4 Motor Activity: Normal gait Speech: Unremarkable Language: Adequate Fund of Knowledge: Adequate Attention and Concentration: Adequate Memory: Unremarkable Mood: Sad, Anxious (Slightly improved) Affect: Anxious Thought Process & Associations: Intact Thought Content: Appropriate Hallucination Type: None Delusion Type: None Suicidal Ideation: No (Passive, fleeting) Suicidal Plan: No Suicidal Intention: No Homicidal Ideation: No Homicidal Plan: No Homicidal Intention: No Insight: Fair Judgment: Adequate (Fair) Assessment and Plan - Assessment (1) Major depressive disorder, recurrent severe without psychotic features Code(s): F33.2 - Major depressive disorder, recurrent severe without psychotic features Status: Acute - Plan Plan: Continue current treatment plan Justification for Continued Inpatient Stay: Patient would decompensate in a less restrictive setting
[2018-03-17] MEDS: QUEtiapine 100 MG Tablet PO SCH (20:34)
[2018-03-17] MEDS: Mirtazapine 15 MG Tablet PO SCH (20:34)
[2018-03-18] MEDS: SYNTHROID 75 MCG PO SCH (05:50)
[2018-03-18] MEDS: Metoprolol Tartrate 25 MG Tablet PO SCH ×2 (08:24→21:09)
[2018-03-18] MEDS: Ascorbic Acid 500 MG Tablet PO SCH (08:24)
[2018-03-18] MEDS: QUEtiapine 25 MG Tablet PO SCH ×2 (08:24→16:01)
[2018-03-18] MEDS: Magnesium Oxide 400 MG Tablet PO SCH (08:24)
[2018-03-18] MEDS: Famotidine 20 MG Tablet PO SCH (08:24)
[2018-03-18] MEDS: Tiotropium Bromide 18 MCG/ACT Inhaler INH SCH (08:40)
[2018-03-18] MEDS: Benzocaine/Menthol 15 MG/3.6 MG SF Lozenge BUCCAL PRN (10:28)
--- NOTE | 2018-03-18 12:17 | P.PNPSY ---
Subjective Chief Complaint: depression Remarks: Medical record reviewed and discussed with nursing staff. Patient is in the day room eating lunch. Rounded with KRISH Caballero. Patient's blood pressure was 92/60 last night so Lopressor was held ant then this morning her blood pressure was elevated. She is currently on 75mg of Lopressor. Patient is fearful of falling as she fell last week. She is also asking for her B12 injection. Will place a hospitalist consult for blood pressure management. Eating and sleeping well. Patient is sad and mood is flat. Review of Systems All other systems reviewed negative except as stated in HPI Mental Status Examination Appearance: Appropriate Consciousness: Alert Orientation: x4 Motor Activity: Normal gait Speech: Unremarkable Language: Adequate Fund of Knowledge: Adequate Attention and Concentration: Adequate Memory: Unremarkable Mood: Sad, Anxious (Slightly improved) Affect: Flat, Anxious Thought Process & Associations: Intact Thought Content: Appropriate Hallucination Type: None Delusion Type: None Suicidal Ideation: No (Passive, fleeting) Suicidal Plan: No Suicidal Intention: No Homicidal Ideation: No Homicidal Plan: No Homicidal Intention: No Insight: Fair Judgment: Adequate (Fair) Assessment and Plan - Assessment (1) Major depressive disorder, recurrent severe without psychotic features Code(s): F33.2 - Major depressive disorder, recurrent severe without psychotic features Status: Acute - Plan Plan: Continue current treatment plan Justification for Continued Inpatient Stay: Moving patient to a less restrictive environment may result in her decompensation.
[2018-03-18 17:35] VITALS: RESP 16
[2018-03-18] MEDS: Mirtazapine 15 MG Tablet PO SCH (21:08)
[2018-03-18] MEDS: QUEtiapine 100 MG Tablet PO SCH (21:09)
[2018-03-19 05:12] VITALS: BP 142/59; PULSE 82; TEMP 97.9; O2SAT 96
[2018-03-19] MEDS: SYNTHROID 75 MCG PO SCH (05:34)
[2018-03-19] MEDS: Metoprolol Tartrate 25 MG Tablet PO SCH (09:33)
[2018-03-19] MEDS: Famotidine 20 MG Tablet PO SCH (09:33)
[2018-03-19] MEDS: Ascorbic Acid 500 MG Tablet PO SCH (09:34)
[2018-03-19] MEDS: Furosemide 40 MG Tablet PO SCH (09:34)
[2018-03-19] MEDS: Tiotropium Bromide 18 MCG/ACT Inhaler INH SCH (09:34)
[2018-03-19] MEDS: Magnesium Oxide 400 MG Tablet PO SCH (09:34)
[2018-03-19] MEDS: QUEtiapine 25 MG Tablet PO SCH (09:34)
--- NOTE | 2018-03-19 09:43 | P.TTN ---
- Patient Problems Problems: 1. Discharge planning 2. Medication compliance 3. Knowledge deficit 4. Lack of coping skills - Progress Toward Goals Provider Present: Dr. Renea Marc (Patient is still depressed, patient will remain for further stabilization.) Provider Input: 03/12: Pt is new, will meet with her and discuss treatment plan today Nurse(s) Present: Ada Nurse Input: 03/12: Pt is depressed; denies SI; denies AVH; cooperative; no behavioral issues Psychiatric Counselors Present: Bertin Yanez Jr., [facility] (Counselor will meet with the patient to discuss a safe discharge plan.), Shweta Browne, [facility] Group Spec/RT/OT/SOLIZ Present: MARTÍNEZ Echevarria, Fernando Alvarado, OT, MARTÍNEZ Kraus (Patient attends select groups.) Group Spec/RT/OT/SOLIZ Input: 03/12: Pt has began to attend select groups with encouragement, she is seclusive Occupational Therapist Input: 03/12: Pt refused to speak to the OT for interview ; MDD, hx of multiple medical problems Clinical Coordinator: Rose Clark [facility] - Discharge Plan Other 03/12: Pt is new today; will meet with her and discuss discharge planning - Documentation Teaching Recipient: Patient
[2018-03-19 09:47] LABS: INR 2.2 Ratio; Prothrombin Time 22.2 sec (9.8-11.6)
[2018-03-19] MEDS ORDERED: Enoxaparin Inj 80 MG/0.8 ML Syringe SQ SCH (11:00)
--- NOTE | 2018-03-19 12:01 | P.PNIM ---
Subjective Interval history: DRAFT NOTE Pt has NO new medical complaints. Pt is tolerating PO intake without n/v/d. Pt denies CP, SOB, or palpitations. Pt denies dizziness. Physical Exam Vital signs: Last Vital Signs Temp 97.9 F 03/19/18 05:11 Pulse 82 03/19/18 05:11 Resp 16 03/19/18 05:11 BP 142/59 H 03/19/18 05:11 Pulse Ox 96 03/19/18 05:11 Narrative: GENERAL: This is a well-nourished, well-developed patient, in no apparent distress. CARDIOVASCULAR: Regular rate and rhythm without murmurs, gallops, or rubs. RESPIRATORY: Clear to auscultation. Breath sounds equal bilaterally. No wheezes , rales, or rhonchi. GASTROINTESTINAL: Abdomen soft, non-tender, nondistended. Normal active bowel sounds MUSCULOSKELETAL: Extremities without clubbing, cyanosis, or edema. NEURO: Alert & Oriented x4 to person, place, time, situation. Moves all ext x4 Results Labs CBC & Chem 7: 03/10/18 15:35 03/13/18 09:20 Assessment and Plan Assessment (1) Major depressive disorder, recurrent severe without psychotic features: Code(s): F33.2 - Major depressive disorder, recurrent severe without psychotic features Status: Acute Plan depression/anxiety/suicidal - Pt admitted to psych unit for depression and suicidal thoughts - continue mgmt per psychiatry afib. hx mechanical mitral valve secondary to endocartitis - INR 2.2 (03/19/18) - Per pt, she has a ON-X mechanical valve & INR needs to be between 2-3 - continue current coumadin regimen - discharge to home per psychiatry orders - continue lasix 40mg and kcl 10meq every other day - monitor bmp COPD resume her spiriva Hypothyroidism cont her synthroid Progress Note: Quality VTE Deep Vein Thrombosis/Pulmonary Embolism Present on Admission: No
--- NOTE | 2018-03-19 12:15 | P.DSPSY ---
Psychiatry Discharge Summary Inpatient Psychiatric care?: Yes Advance Directives: No Mental Health Advance Directive: No Health Care Proxy: No - Admission Admission Date: March 10, 2018 20:33 - Admission Diagnosis (1) Major depressive disorder, recurrent severe without psychotic features Code(s): F33.2 - Major depressive disorder, recurrent severe without psychotic features Brief History: Patient is a 63-year-old female with a history of depressive disorder. He is she is here voluntarily for racing thoughts and persistent suicidal ideation. Patient says she has thoughts of not wanting to live anymore, does not care if she wakes up or not, feeling worthless. However, today she denies suicidal or homicidal ideation or plan. Says the thoughts are "in the back of my mind." She admits to anhedonia and depressive mood. Affect is quite anxious and patient is asking for Ativan. Patient notes "some tingling" with Atarax but nursing notes that it has been effective compared to her initial presentation. Patient is complaining of insomnia for the last 3 weeks Past psych: Patient was [facility] here 22 years ago for cutting her wrist. She has had no other outpatient or inpatient treatment. No other psychotropic medications. Past medical: Multiple medical comorbidities including A. fib and hypertension see chart Past Famhx: Unsure Past Social: Patient denies drug or alcohol use. She is and lives with her , and has 2 kids Tobacco Use In Past 30 Days: No How Often Do You Have a Drink Containing Alcohol: Never Hospital Course: Patient's hospital stay was uneventful she focused primarily on her sleep problems and her anxiety. Her sleep issues have improved. Though not totally to her satisfaction. She would like to "8 solid hours of sleep at night" she does denies suicidality homicidality voices or visions. She does wish to be discharged today to go home to her her pet dogs in her own house. Patient does not meet criteria for involuntary psychiatric hospitalization. At this time I feel she is reached maximum benefit of this hospitalization thus I will allow her to be discharged today with Rx times 1 month patient states she has an appointment scheduled with Dr. Parra but not until the first of next year. We will have her counselors call that office to arrange for a more appropriately timed outpatient visit. She also may follow through the medical doctors through [facility] - Discharge Discharge Date: 11/12/18 - Discharge Diagnosis (1) Major depressive disorder, recurrent severe without psychotic features Code(s): F33.2 - Major depressive disorder, recurrent severe without psychotic features Status: Acute Discharge Disposition: Home - Discharge Instructions Discharge Diet: Regular Diet Activities You Can Perform: Regular- No Restrictions - Discharge Time > 30 minutes Mental Status Examination Appearance: Appropriate Consciousness: Alert Orientation: x4 Motor Activity: Normal gait Speech: Unremarkable Language: Adequate Fund of Knowledge: Adequate Attention and Concentration: Adequate Memory: Unremarkable Mood: Sad, Anxious (Slightly improved) Affect: Flat, Anxious Thought Process & Associations: Intact Thought Content: Appropriate Hallucination Type: None Delusion Type: None Suicidal Ideation: No (Passive, fleeting) Suicidal Plan: No Suicidal Intention: No Homicidal Ideation: No Homicidal Plan: No Homicidal Intention: No Insight: Fair Judgment: Adequate (Fair) Discharge/Advance Care Plan - Results Vital Signs: Last Vital Signs Temp 97.9 F 03/19/18 05:11 Pulse 82 03/19/18 05:11 Resp 16 03/19/18 05:11 BP 142/59 H 03/19/18 05:11 Pulse Ox 96 03/19/18 05:11 Lab Results: Abnormal Lab Results 03/19/18 09:04 PT 22.2 H INR 2.2 Laboratory Results Hemoglobin A1c 5.5 % (4.3-6.0) 03/11/18 09:32 Triglycerides 157 mg/dL (42-150) H 03/11/18 09:32 Cholesterol 122 mg/dL (120-200) 03/11/18 09:32 LDL Cholesterol, Calc 48 mg/dL (0-99) 03/11/18 09:32 HDL Cholesterol 42.2 mg/dL (40.0-60.0) 03/11/18 09:32 TSH 0.335 uIU/mL (0.358-3.740) L 03/10/18 15:35 Free T4 1.31 ng/dL (0.76-1.46) 03/10/18 15:35 Free T3 2.34 pg/mL (2.18-3.98) 03/10/18 15:35 Urine Culture Comments Culture not ind 03/10/18 18:53 Summary of Procedures: None done Imaging: ITS Impressions Foot X-Ray 03/14/18 00:22 CONCLUSION: Negative examination Pending Results: None - Medications Number of antipsychotic medications at discharge: 1 - Discharge Care Plan Goals to Promote Your Health: * To prevent worsening of your condition and complications * To maintain your health at the optimal level Directions to Meet Your Goals: Take your medications as prescribed Follow your dietary instruction Follow activity as directed Keep your appointments as scheduled Take your immunizations and boosters as scheduled If your symptoms worsen call your PCP, if no PCP go to Urgent Care Center or Emergency Room For 28/11 questions related to your inpatient stay or results of tests pending at discharge, please contact Dr. Reyes Marc MD at Smoking is Dangerous to Your Health. Avoid second hand smoking
--- NOTE | 2018-03-19 12:30 | P.DCO ---
Diagnosis (1) Mitral valve replaced: Status: Acute (2) Afib: Status: Acute Home Health Nursing Order: Medical education, Signs/symptoms of disease process and Medication education-adverse effect Instructions: Daily Lovenox until INR > 2.5 Daily INR until INR > 2.[address] Leo I have seen patient Vickie Petersen on 03/19/18. My clinical findings support the need for the requested home health care services because: Medication compliance is questionable I certify that my clinical findings support that this patient is homebound because: Unsafe to leave home unassisted
[2018-03-19] MEDS ORDERED: Enoxaparin Inj 120 MG/0.8 ML Syringe SQ ONE (13:00)
== END 2018-03-19 15:20 | disposition home or self-care (01) ==
LOC: NEPJ 12:19 → NEDA 20:33 → H260 22:05
PROVIDERS: ADMIT Psychiatry & Neurology Psychiatry; ATTEND Psychiatry & Neurology Psychiatry
DX: E03.9 Hypothyroidism, unspecified; Z79.01 Long term (current) use of anticoagulants; R55 Syncope and collapse; J44.9 Chronic obstructive pulmonary disease, unspecified; F41.9 Anxiety disorder, unspecified; S99.919A Unspecified injury of unspecified ankle, initial encounter; Z95.2 Presence of prosthetic heart valve; Z91.5 Personal history of self-harm; X50.1XXA Overexertion from prolonged static or awkward postures, initial encounter; I50.9 Heart failure, unspecified; F51.05 Insomnia due to other mental disorder; I11.0 Hypertensive heart disease with heart failure; Z88.1 Allergy status to other antibiotic agents; R45.851 Suicidal ideations; Z87.891 Personal history of nicotine dependence; I48.91 Unspecified atrial fibrillation; F33.2 Major depressive disorder, recurrent severe without psychotic features